=== PATIENT | male | born 2000 | race Two or more races ===

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

== ENCOUNTER 2024-09-14 23:59 | Emergency (ER) | payer MEDICAID ==
[~2024-09-14] VITALS: Ht 175.3 cm; Wt 107.0 kg
[2024-09-15 00:15] VITALS: BP 130/82; PULSE 94; RESP 18; TEMP 98.9; O2SAT 94
--- NOTE | 2024-09-15 00:55 | DVH ---
EXAM: CT CERVICAL WITHOUT CONTRAST HISTORY: + LOC Head Trauma COMPARISON: None CTDIvol mGy, DLP mGy*cm. TECHNIQUE: Multiple axial CT images of the spine were obtained using bone algorithm. Axial and coron al reformatting was done. Bone and soft tissue windows were reviewed. FINDINGS: No prevertebral soft abnormality is noted. Mild straightening of the normal cervical lordosis; the al ignment is otherwise unremarkable with no listhesis. The cervical vertebral bodies are normal in appe arance with no evidence of fracture or dislocation. Visualized paraspinal soft tissues appear unremarkable. No spinal canal or neural foraminal stenosis . IMPRESSION: No evidence of cervical spine fracture or dislocation.
--- NOTE | 2024-09-15 00:59 | DVH ---
CT HEAD WITHOUT CONTRAST INDICATION: + LOC Head Trauma COMPARISON: None TECHNIQUE: CT of the head without intravenous contrast. RADIATION DOSE: CTDIvol: mGy, DLP: mGy*cm FINDINGS: There is no evidence of intracranial hemorrhage, infarct, extra-axial collection, mass effect, midli ne shift, herniation or hydrocephalus. The ventricles, sulci and cisterns are normal. The potter-whit e differentiation is normal. Visualized paranasal sinuses and mastoid air cells are clear. Evidence of scalp laceration and hemat iron in left posterior parietal-occipital region. No calvarial abnormality/fracture. IMPRESSION: No intracranial abnormality. Evidence of scalp laceration and hematoma in left posterior parietal-occipital region. No calvarial f racture.
[2024-09-15] MEDS: LIDOCAINE W/ EPINEPHRINE 2% INJ 20ML VIAL IJ ONE (01:49)
--- NOTE | 2024-09-15 02:50 | ED.PDOC ---
Adryanyuval. trauma (HPI) HPI Comments PT WAS DRINKING ALCOHOL, FELL BACKWARDS HITTING HIS HEAD, STATES HE BELIEVES HE LOST CONSCIOUSNESS. PT HAS AN APPROXIMATE 4CM LACERATION ON HIS POSTERIOR HEAD. PT DENIES N/V, BLURRED VISION, DIZZINESS. Chief Complaint: Fall Injury Time Seen by MD: 00:04 Reviewed notes: Nurses Notes, Medications, Allergies Allergies: Coded Allergies: NO KNOWN ALLERGIES (Unverified , 09/15/24) Information Source: Patient Mode of Arrival: Wheelchair Past Medical History PAST MEDICAL HISTORY: Denies Surgical History: Denies all surgeries Family History Family History: Reviewed,noncontributory to illness, No family hx of Cancer, No family hx of DM, No family hx of Heart malcom, No family hx of HTN, No family hx ofKidney malcom, No family hx of Liver malcom, No family hx of Lung malcom, No family hx of Stroke Social History Smoker: Non-Smoker Alcohol: Occasionally Drugs: Denies Drug Use Constitutional: denies: chills, diaphoresis, fatigue, fever, malaise, sweats, weakness, others EENTM: denies: blurred vision, double vision, ear bleeding, ear discharge, ear drainage, ear pain, ear ringing, eye pain, eye redness, hearing loss, mouth pain, mouth swelling, nasal discharge, nose bleeding, nose congestion, nose pain, photophobia, tearing, throat pain, throat swelling, voice changes, others Respiratory: denies: cough, hemoptysis, orthopnea, SOB at rest, shortness of breath, SOB with excertion, stridor, wheezing, others Cardiovascular: denies: chest pain, dizzy spells, diaphoresis, Dyspnea on exertion, edema, irregular heart beat, left arm pain, lightheadedness, palpitations, PND, syncope, others Gastrointestinal: denies: abdomen distended, abdominal pain, blood streaked bowels, constipated, diarrhea, dysphagia, difficulty swallowing, hematemesis, melena, nausea, poor appetite, poor fluid intake, rectal bleeding, rectal pain, vomiting, others Genitourinary: denies: burning, dysuria, flank pain, frequency, hematuria, incontinence, penile discharge, penile sore, pain, testicle pain, testicle swelling, urgency, others Neurological: reports: headache; denies: dizziness, fainting, left sided numbness, left sided weakness, numbness, paresthesia, pre-existing deficit, right sided numbness, right sided weakness, seizure, speech problems, tingling, tremors, weakness, others Musculoskeletal: denies: back pain, gout, joint pain, joint swelling, muscle pain, muscle stiffness, neck pain, others Integumetry: reports: laceration (SCALP LAST); denies: bruises, change in color, change in hair/nails, dryness, lesions, lumps, rash, wounds, others Allergic/Immunocompromised: denies: Difficulty Healing, Frequent Infections, Hives, Itching, others Hematologic/Lymphatic: denies: anemia, blood clots, easy bleeding, easy bruising, swollen glands, others Endocrine: denies: excessive hunger, excessive sweating, excessive thirst, excessive urination, flushing, intolerance to cold, intolerance to heat, unexplained weight gain, unexplained weight loss, others Psychiatric: denies: anxiety, bipolar disorder, depression, hopeless, panic disorder, schizophrenia, sleepless, suicidal, others Physical Exam General Appearance: No Apparent Distress, Normal HEENT: Normal ENT Inspection, Pharynx Normal, TMs Normal Neck: Full Range of Motion, Non-Tender Respiratory: Chest Non-Tender, Lungs Clear, No Respiratory Distress, Normal Breath Sounds Cardiovascular: No Edema, No JVD, No Murmur, No Gallop, Normal Peripheral Pulses, Regular Rate/Rhythm Breast Exam: Deferred Gastrointestinal: No Organomegaly, Non Tender, No Pulsatile Mass, Normal Bowel Sounds, Soft Genitalia: Deferred Pelvic: Deferred Rectal: Deferred Extremities: Normal capillary refill, Normal inspection, Normal range of motion, Non-tender, No pedal edema Musculoskeletal : Apperance: Normal Neurologic: Alert, braddisher II-XII nml as Tested, No Motor Deficits, Normal Affect, Normal Mood, No Sensory Deficits Cerebellar Function: Normal Reflexes: Normal Skin: Dry, Lacerations (4 CM LACERATION TO RIGHT PARIETAL SCALP FULL-THICKNESS. ), Normal Color, Warm Lymphatic: No Adenopathy Was a procedure done? Was a procedure done?: Yes Sedation Sedation?: No Informed consent obtained: Yes Laceration Repair : Location LEFT PARIETAL SCALP Length 4 CM Anesthetic: Lidocaine, With epi Laceration Repair Prep: Saline, Betadine Laceration Repair Wound Comple: epidermis/dermis repair Laceration Repair: Number of sutures (6) Informed consent obtained: Yes Risks, benefits, and alternati: Yes Notes PATIENT TOLERATED WELL WITH MINIMAL BLOOD LOSS. AND ABLE TO STAPLE DUE TO THE WIDENING OF THE LACERATION Differential Diagnosis Multiple Trauma: Closed Head Injury, Fractures, Contusion, Foreign Body Neck Injury: Cervical Fracture X-Ray, Labs, Meds, VS Vital Signs Date Time Temp Pulse Resp B/P (MAP) Pulse Ox O2 Delivery O2 Flow Rate FiO2 09/15/24 00:15 98.9 94 18 130/82 (98) 94 98.9 09/15/24 00:15 Room Air 09/15/24 00:15 98.9 94 18 130/82 (98) 94 X-Ray, Labs, Meds, VS Comment SEE PROCEDURE NOTE. CERVICAL SPINE CT NEGATIVE FOR ACUTE FINDINGS NO OSSEOUS LESIONS. BRAIN/HEAD CT NEGATIVE FOR ACUTE FINDINGS. WATCH FOR SIGNS OF HEAD INJURY INCLUDING NAUSEA, VOMITING, FEVER, AND ABNORMAL BEHAVIOR, RETURN TO THE ER ADVISED. SUTURES REMOVED IN 7-10 DAYS.FOLLOW-UP WITH PCP IN 1 TO 2 DAYS. TAKE MEDICATIONS PRESCRIBED. RETURN TO ED FOR ANY NEW OR WORSENING SYMPTOMS. Time of 1ST Reevaluation: 02:47 Reevaluation 1ST: Improved Patient Education/Counseling: Diagnosis, Treatment, Prognosis, Need For Follow Up Family Education/Counseling: No Family Present Departure 1 Departure Time of Disposition: 02:49 Impression: Primary Impression: Closed head injury with concussion Qualified Codes: S06.0XAA - Concussion with loss of consciousness status unknown, initial encounter Additional Impression: Complex laceration of scalp Disposition: 01 HOME / SELF CARE / HOMELESS Condition: Stable Additional Instructions: WATCH FOR SIGNS OF HEAD INJURY INCLUDING NAUSEA, VOMITING, FEVER, AND ABNORMAL BEHAVIOR, RETURN TO THE ER ADVISED. SUTURES REMOVED IN 7-10 DAYS.FOLLOW-UP WITH PCP IN 1 TO 2 DAYS. TAKE MEDICATIONS PRESCRIBED. RETURN TO ED FOR ANY NEW OR WORSENING SYMPTOMS. Discharged With: Friend Critical Care Note Critical Care Time?: No Stability Stability form required: RICA Leigh Sep 15, 2024 02:50
== END 2024-09-15 03:03 | disposition home or self-care (01) ==
LOC: ER 23:59
DX: S01.01XA Laceration without foreign body of scalp, initial encounter (principal); S06.0XAA Concussion with loss of consciousness status unknown, initial encounter; W18.09XA Striking against other object with subsequent fall, initial encounter; Y93.89 Activity, other specified; Y92.89 Other specified places as the place of occurrence of the external cause; Y99.8 Other external cause status
CPT/HCPCS: 12002; 70450; 72125